=== PATIENT | male | born 1940 | race American Indian/Alaskan Native ===

== ENCOUNTER 2021-06-28 18:56 | Emergency (ER) | payer MEDICARE ==
[2021-06-28 19:15] VITALS: BP 143/85
[2021-06-28] MEDS ORDERED: ASPIRIN 325 MG TAB PO ONE (19:16)
[2021-06-28 19:42] LABS: Basophils # (Auto) 0.1 K/mm3 (0.0-0.1); Eosinophils # (Auto) 0.2 K/mm3 (0.0-0.4); Eosinophils % (Auto) 2.4 % (0.0-4.3); Hematocrit 43.4 % (35.5-45.6); Hemoglobin 14.8 gm/dl (11.8-15.2); Lymphocytes # (Auto) 1.4 K/mm3 (1.2-5.4); Lymphocytes % (Auto) 16.6 % (13.4-35.0); Mean Corpuscular HGB Conc 34 % (32-34); Mean Corpuscular Volume 105 fl (84-94); Monocytes # (Auto) 0.7 K/mm3 (0.0-0.8); Monocytes % (Auto) 8.2 % (0.0-7.3); Platelet Count 266 K/mm3 (140-440); Red Blood Count 4.12 M/mm3 (3.65-5.03); Red Cell Distribution Width 16.1 % (13.2-15.2)
--- NOTE | 2021-06-28 20:02 | XRay Report ---
CHEST PA AND LATERAL VIEWS INDICATION: chest pain. COMPARISON: None. FINDINGS: Support devices: None. Heart: Within normal limits. Lungs/Pleura: No acute pulmonary or pleural findings. Scoliosis is noted. Lateral left lower rib fractures appear healed/chronic, correlate with point tend erness. IMPRESSION: 1. No acute findings. Signer Name: Kai Ch MD Signed: 06/28/2021 7:57 PM Workstation Name: [id number]
[2021-06-28 20:26] LABS: Alanine Aminotransferase 9 units/L (7-56); Albumin 4.6 g/dL (3.9-5); BUN/Creatinine Ratio 15; Blood Urea Nitrogen 21 mg/dL (9-20); Calcium 9.7 mg/dL (8.4-10.2); Hemolysis Index 6
--- NOTE | 2021-07-01 11:09 | Electrocardiograph Report ---
[facility] Test Date: 2021-06-28 Test Time: 19:04:34 Pat Name: ANTONIO NAVAS Department: Room: Gender: M Certified Mortician: CLT : 1940 Requested By: LEN REDD Order Number: [id number] Reading MD: Geovanni Rivas Measurements Intervals [place] Rate: 59 P: 78 DC: 114 QRS: -67 QRSD: 148 T: 13 QT: 467 QTc: 463 Interpretive Statements Sinus bradycardia Probable left atrial enlargement IVCD, consider RBBB Anterior infarct, old No previous ECG available for comparison Electronically Signed On 07-01-2021 11:09:46 EDT by Geovanni Rivas
== END 2021-06-28 19:30 | disposition left against medical advice (07) ==
LOC: ED 18:56
DX: R42 Dizziness and giddiness (principal); R07.89 Other chest pain; Z53.21 Procedure and treatment not carried out due to patient leaving prior to being seen by health care provider
CPT/HCPCS: 36415; 71046; 80053; 84484; 85025; 93005